=== PATIENT | male | born 1980 | race Caucasian/White ===

== ENCOUNTER 2016-11-10 14:29 | Emergency (ER) | payer MEDICAID ==
[~2016-11-10] VITALS: Ht 182.9 cm; Wt 72.5 kg
[~2016-11-10 14:29] MED LIST: AMAN100T PO; ARIC10TA PO; AZEL0.05; LISI-363 PO; MOME17I; MONT10 PO; NAME10TA PO; NORV5TAB PO; SYNT125T PO; TEST200I12 SQ; TYLE3 PO
[2016-11-10 14:30] VITALS: BP 155/90; PULSE 112; RESP 20; TEMP 98.8; O2SAT 98
[2016-11-10] MEDS ORDERED: TRAZ100T6 PO (18:38)
[2016-11-10] MEDS ORDERED: AMLO10TA2 PO (18:38)
[2016-11-10] MEDS ORDERED: LISI-519 PO (18:38)
[2016-11-10] MEDS ORDERED: LEVO.05 PO (18:38)
[2016-11-10] MEDS ORDERED: RISP1 PO (18:38)
[2016-11-10] MEDS ORDERED: PROP10TA6 PO (18:38)
[2016-11-10] MEDS ORDERED: ANDR2DIS T-DERMAL (18:38)
== END 2016-11-10 17:45 | disposition left against medical advice (07) ==
LOC: NEDAMB 14:29
DX: F19.939 Other psychoactive substance use, unspecified with withdrawal, unspecified (principal); Z53.21 Procedure and treatment not carried out due to patient leaving prior to being seen by health care provider
CPT/HCPCS: 99281

== ENCOUNTER 2016-11-10 17:08 | Inpatient (IN) | payer MEDICAID ==
[~2016-11-10] VITALS: Ht 182.9 cm; Wt 75.9 kg
[2016-11-10 17:10] VITALS: BP 161/86; PULSE 105; RESP 16; TEMP 99; O2SAT 98
[2016-11-10 18:23] LABS: BLOOD, URINE LARGE (NEG); GLUCOSE,URINE NEG (NEG); KETONE, URINE 15 mg/dL (NEG); NITRITE,URINE NEG (NEG); PH, URINE 5.5 (5.0-8.5)
[2016-11-10] MEDS ORDERED: ANDR2DIS T-DERMAL (18:38)
[2016-11-10] MEDS ORDERED: PROP10TA6 PO (18:38)
[2016-11-10] MEDS ORDERED: LEVO.05 PO (18:38)
[2016-11-10] MEDS ORDERED: RISP1 PO (18:38)
[2016-11-10] MEDS ORDERED: TRAZ100T6 PO (18:38)
[2016-11-10] MEDS ORDERED: LISI-519 PO (18:38)
[2016-11-10] MEDS ORDERED: AMLO10TA2 PO (18:38)
[2016-11-10 18:43] LABS: URINE COLOR YELLOW (YELLW/STRAW)
[2016-11-10 18:44] LABS: MUCUS URINE MANY /lpf (OCC)
[2016-11-10] MEDS ORDERED: SODIUM CHLOR 0.9% 1000 ML INJ 1,000 ML IV ONE (18:45)
[2016-11-10 18:46] LABS: WBC, URINE 0-2 /hpf (0-5); WHITE BLOOD CELL CAST, URINE 0-2 /lpf
[2016-11-10 18:47] LABS: COMMENT (UR) CULT NOT INDICATED; CULTURE IF INDICATED CULT NOT INDICATED; SQUAMOUS EPITHELIAL CELL URINE 0-5 /hpf (0-5)
[2016-11-10 19:10] LABS: AUTOMATED NEUTROPHIL # 8.2 TH/MM3 (1.8-7.7); BASOPHIL # 0.5 TH/MM3 (0-0.2); BASOPHIL % 4.3 % (0.0-2.0); EOSINOPHIL % 0.1 % (0.0-4.0); HEMATOCRIT 46.8 % (39.0-51.0); LYMPH % 15.5 % (9.0-44.0); LYMPHOCYTE # 1.8 TH/MM3 (1.0-4.8); MEAN CELL VOLUME 91.3 FL (80.0-100.0); MEAN CORPUSCULAR HEMOGLOBIN 30.5 PG (27.0-34.0); MEAN CORPUSCULAR HGB CONC 33.4 % (32.0-36.0); NEUT % 71.1 % (16.0-70.0); PLATELET COUNT 302 TH/MM3 (150-450); RED BLOOD COUNT 5.13 MIL/MM3 (4.50-5.90); RED CELL DISTRIBUTION WIDTH 12.7 % (11.6-17.2); WHITE BLOOD COUNT 11.5 TH/MM3 (4.0-11.0)
[2016-11-10 19:11] LABS: HEMO FLAGS DIFF FINAL
[2016-11-10 19:12] LABS: CHLORIDE 99 MEQ/L (98-107); POTASSIUM 3.9 MEQ/L (3.5-5.1); SODIUM (NA) 135 MEQ/L (136-145)
[2016-11-10 19:15] LABS: ANION GAP 14 MEQ/L (5-15); BICARBONATE 22.5 MEQ/L (21.0-32.0); BLOOD UREA NITROGEN 25 MG/DL (7-18)
[2016-11-10 19:18] LABS: AST (GOT) 50 U/L (15-37); GLOMERULAR FILTRATION RATE 77 ML/MIN (>89)
[2016-11-10 19:20] LABS: TOTAL BILIRUBIN ADULT 1.1 MG/DL (0.2-1.0)
[2016-11-10 19:21] LABS: ALKALINE PHOSPHATASE 78 U/L (45-117)
[2016-11-10 19:25] VITALS: BP 168/82; PULSE 88; RESP 18; TEMP 98.4; O2SAT 96
[2016-11-10 19:27] LABS: ALT (GPT) 48 U/L (12-78)
--- NOTE | 2016-11-10 19:27 | RADRPT ---
EXAM DATE/TIME: 11/10/2016 18:48 [facility] COMPARISON: CT BRAIN W/O CONTRAST, October 29, 2014, 16:52. INDICATIONS : Syncopal episode, possible fall. RADIATION DOSE: 62.64 CTDIvol (mGy) MEDICAL HISTORY : Carcinoma, brain. SURGICAL HISTORY : Craniotomy. ENCOUNTER: Initial ACUITY: 1 day PAIN SCALE: 0/10 LOCATION: cranial TECHNIQUE: Multiple contiguous axial images were obtained of the head. Using automated exposure control and adj ustment of the mA and/or kV according to patient size, radiation dose was kept as low as reasonably a chievable to obtain optimal diagnostic quality images. DICOM format image data is available electro nically for review and comparison. FINDINGS: CEREBRUM: Small area of encephalomalacia right frontal lobe again seen and unchanged. The ventricles are normal for age. No evidence of midline shift, mass lesion, hemorrhage or acute infarction. No extra-axial fluid collections are seen. Probable calcification along the dura again seen bilaterally and also wi thin the brainstem POSTERIOR FOSSA: The cerebellum and brainstem are intact. The 4th ventricle is midline. The cerebellopontine angle i s unremarkable. EXTRACRANIAL: The visualized portion of the orbits is intact. SKULL: The calvaria is intact. Occipital craniotomy. CONCLUSION: No acute intracranial abnormality. Minimal encephalomalacia right frontal lobe. Status post occipital craniotomy.. Rudi Mark MD on November 10, 2016 at 19:22 Board Certified Radiologist. This report was verified electronically.
--- NOTE | 2016-11-10 19:31 | RADRPT ---
EXAM DATE/TIME: 11/10/2016 18:48 [facility] COMPARISON: No previous studies available for comparison. INDICATIONS : Possible fall. RADIATION DOSE: 26.41 CTDIvol (mGy) MEDICAL HISTORY : Hypertension. SURGICAL HISTORY : None. ENCOUNTER: Initial ACUITY: 1 day PAIN SCALE: 1/10 LOCATION: neck TECHNIQUE: Volumetric scanning of the cervical spine was performed. Multiplanar reconstructions in the sagittal, coronal and oblique axial planes were performed. Using automated exposure control and adjustment o f the mA and/or kV according to patient size, radiation dose was kept as low as reasonably achievable to obtain optimal diagnostic quality images. DICOM format image data is available electronically f or review and comparison. FINDINGS: VERTEBRAE: Normal vertebral body height. Degenerative changes C4-5. ALIGNMENT: No evidence of subluxation. C2-C3: The bony spinal canal is normal in size. No evidence of disc bulge or herniation. The neural forami na are bilaterally patent. C3-C4: The bony spinal canal is normal in size. No evidence of disc bulge or herniation. The neural forami na are bilaterally patent. C4-C5: The bony spinal canal is normal in size. No evidence of disc bulge or herniation. The neural forami na are bilaterally patent. C5-C6: The bony spinal canal is normal in size. No evidence of disc bulge or herniation. The neural forami na are bilaterally patent. C6-C7: The bony spinal canal is normal in size. No evidence of disc bulge or herniation. The neural forami na are bilaterally patent. C7-T1: The bony spinal canal is normal in size. No evidence of disc bulge or herniation. The neural forami na are bilaterally patent. CONCLUSION: No fracture or subluxation. Rudi Mark MD on November 10, 2016 at 19:28 Board Certified Radiologist. This report was verified electronically.
--- NOTE | 2016-11-10 19:34 | RADRPT ---
EXAM DATE/TIME: 11/10/2016 18:57 [facility] COMPARISON: No previous studies available for comparison. INDICATIONS : Urinary retention. ORAL CONTRAST: No oral contrast ingested. RADIATION DOSE: 8.54 CTDIvol (mGy) MEDICAL HISTORY : Hypertension. SURGICAL HISTORY : None. ENCOUNTER: Initial ACUITY: 1 day PAIN SCALE: 0/10 LOCATION: abdomen TECHNIQUE: Volumetric scanning of the abdomen and pelvis was performed. Using automated exposure control and ad justment of the mA and/or kV according to patient size, radiation dose was kept as low as reasonably achievable to obtain optimal diagnostic quality images. DICOM format image data is available electro nically for review and comparison. FINDINGS: LOWER LUNGS: The visualized lower lungs are clear. LIVER: Decreased attenuation without lesion. There is no dilation of the biliary tree. No calcified gallst ones. SPLEEN: Normal size without lesion. PANCREAS: Within normal limits. KIDNEYS: Normal in size and shape. There is no mass, stone, or hydronephrosis. ADRENAL GLANDS: Within normal limits. VASCULAR: There is no aortic aneurysm. BOWEL/MESENTERY: Diverticulosis without diverticulitis. Normal appendix. There is no free intraperitoneal air or flui d. ABDOMINAL WALL: Within normal limits. RETROPERITONEUM: There is no lymphadenopathy. BLADDER: No wall thickening or mass. REPRODUCTIVE: Within normal limits. INGUINAL: There is no lymphadenopathy or hernia. MUSCULOSKELETAL: Within normal limits for patient age. CONCLUSION: 1. Moderate to severe hepatic steatosis. 2. No renal calculi or hydronephrosis. 3. Scattered diverticulosis without diverticulitis. 4. Urinary bladder unremarkable. Rudi Mark MD on November 10, 2016 at 19:30 Board Certified Radiologist. This report was verified electronically.
[2016-11-10] MEDS ORDERED: SODIUM CHLORID 0.9% 500 ML INJ 500 ML IV ONE (20:15)
--- NOTE | 2016-11-10 20:24 | PD ---
HPI Chief Complaint: Syncope/Near-Syncope Time Seen by Provider: 18:33 Travel History International Travel<30 days: No Contact w/Intl Traveler<30days: No Traveled to known affect area: No History of Present Illness HPI Patient is a 36-year-old male who comes in with his mom because he says he is unable to urinate. Mom says he has been binge drinking since Tuesday. She found him passed out in the house. He doesn't remember most of the past few days. He does have history of short-term memory loss due to surgery to remove a brain tumor. He says that he feels like he has to urinate, but that it will come out. He denies any other complaints. PFSH Past Medical History Cancer: Yes (BRAIN TUMOR-MALIGNANT IN 2002) Cardiovascular Problems: Yes (HTN) Chemotherapy: Yes (2003 BRAIN CA) Cerebrovascular Accident: No Diabetes: No Diminished Hearing: No Endocrine: Yes Gastrointestinal Disorders: No Genitourinary: No Headaches: No Implanted Vascular Access Dvce: Yes Musculoskeletal: No Neurologic: Yes (RT. 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 ) Psychiatric: No Reproductive: No Respiratory: No Migraines: No Radiation Therapy: Yes (IN 2003) Seizures: No Thyroid Disease: Yes (HYPOTHYROIDISM) Influenza Vaccination: No ?: Not Past Surgical History Abdominal Surgery: No Cardiac Surgery: No Ear Surgery: No Endocrine Surgery: No Eye Surgery: No Genitourinary Surgery: No Gynecologic Surgery: No Neurologic Surgery: Yes (craniotomy 2002) Oral Surgery: No Thoracic Surgery: No Other Surgery: Yes Social History Alcohol Use: Yes (PT STATES OCC BUT HAS ABUSE HX OF ETOH) Tobacco Use: Yes (OCC) Substance Use: No Allergies-Medications (Allergen,Severity, Reaction): Coded Allergies: Contrast Media (Verified Allergy, Severe, RASH, 11/10/16) Pertussis Vaccine (Verified Allergy, Severe, COMA, 11/10/16) Sulfa (Verified Allergy, Severe, Rash, 11/10/16) Reported Meds & Prescriptions Reported Meds & Active Scripts Active Reported Amlodipine (Amlodipine Besylate) 10 Mg Tab 0 PO DAILY Propranolol (Propranolol HCl) 10 Mg Tab 0 PO Q12HR Lisinopril 5 Mg Tab 0 PO DAILY Risperdal (Risperidone) 1 Mg Tab 0 PO DAILY Androderm Patch (Testosterone) 2 Mg/24 Hr Patch 1 Patch T-DERMAL HS Synthroid (Levothyroxine Sodium) 50 Mcg Tab 50 Mcg PO DAILY Trazodone (Trazodone HCl) 100 Mg Tablet 100 Mg PO HS Review of Systems Except as stated in HPI: all other systems reviewed are Neg General / Constitutional: No: Fever, Chills Eyes: Positive: Drainage, No: Blurred Vision HENT: No: Headaches, Lightheadedness Cardiovascular: No: Chest Pain or Discomfort Respiratory: No: Shortness of Breath Gastrointestinal: No: Nausea, Vomiting Genitourinary: Positive: Decreased Urinary Output Skin: No Rash, No Change in Pigmentation Neurologic: No: Weakness, Dizziness Physical Exam Narrative GENERAL: Awake and Alert, in no acute distress. SKIN: Focused skin assessment warm/dry. HEAD: Atraumatic. Normocephalic. EYES: Pupils equal and round. No scleral icterus. ENT: Mucous membranes pink and moist. NECK: Trachea midline. No JVD. No cervical spine tenderness. CARDIOVASCULAR: Regular rate and rhythm. No murmur appreciated. RESPIRATORY: No accessory muscle use. Clear to auscultation. Breath sounds equal bilaterally. GASTROINTESTINAL: Abdomen soft, non-tender, nondistended. No CVA tenderness. MUSCULOSKELETAL: No obvious deformities. No clubbing. No cyanosis. No edema. NEUROLOGICAL: Awake and alert. No obvious cranial nerve deficits. Motor grossly within normal limits. Normal speech. PSYCHIATRIC: Appropriate mood and affect; insight and judgment normal. Data Data Last Documented VS Vital Signs Date Time Temp Pulse Resp B/P Pulse Ox O2 Delivery O2 Flow Rate FiO2 11/10/16 19:25 98.4 88 18 168/82 96 Room Air Orders Urinalysis - C+S If Indicated (11/10/16 17:47) Ct Brain W/O Iv Contrast(Rout) (11/10/16 ) Ct Cerv Spine W/O Contrast (11/10/16 ) Iv Access Insert/Monitor (11/10/16 18:44) Complete Blood Count With Diff (11/10/16 18:44) Comprehensive Metabolic Panel (11/10/16 18:44) Alcohol (Ethanol) (11/10/16 18:44) Sodium Chlor 0.9% 1000 Ml Inj (Ns 1000 M (11/10/16 18:45) Ct Abd/Pel W/O Iv Contrast (11/10/16 ) Sodium Chlorid 0.9% 500 Ml Inj (Ns 500 M (11/10/16 20:15) Chlordiazepoxide (Librium) (11/10/16 20:30) Lorazepam Inj (Ativan Inj) (11/10/16 21:30) Labs Laboratory Tests Test 11/10/16 11/10/16 17:30 18:55 Urine Color YELLOW Urine Turbidity CLEAR Urine pH 5.5 Urine Specific [place] 1.025 Urine Protein 100 mg/dL Urine Glucose (UA) NEG mg/dL Urine Ketones 15 mg/dL Urine Occult Blood LARGE Urine Nitrite NEG Urine Bilirubin NEG Urine Leukocyte Esterase NEG Urine WBC 0-2 /hpf Urine Squamous Epithelial 0-5 /hpf Cells Urine Hyaline Casts 3-5 /lpf Urine Fine Granular Casts 3-5 /lpf Urine White Blood Cell Casts 0-2 /lpf Urine Mucus MANY /lpf Microscopic Urinalysis Comment CULT NOT INDICATED White Blood Count 11.5 TH/MM3 Red Blood Count 5.13 MIL/MM3 Hemoglobin 15.6 GM/DL Hematocrit 46.8 % Mean Corpuscular Volume 91.3 FL Mean Corpuscular Hemoglobin 30.5 PG Mean Corpuscular Hemoglobin 33.4 % Concent Red Cell Distribution Width 12.7 % Platelet Count 302 TH/MM3 Mean Platelet Volume 6.8 FL Neutrophils (%) (Auto) 71.1 % Lymphocytes (%) (Auto) 15.5 % Monocytes (%) (Auto) 9.0 % Eosinophils (%) (Auto) 0.1 % Basophils (%) (Auto) 4.3 % Neutrophils # (Auto) 8.2 TH/MM3 Lymphocytes # (Auto) 1.8 TH/MM3 Monocytes # (Auto) 1.0 TH/MM3 Eosinophils # (Auto) 0.0 TH/MM3 Basophils # (Auto) 0.5 TH/MM3 CBC Comment DIFF FINAL Differential Comment Sodium Level 135 MEQ/L Potassium Level 3.9 MEQ/L Chloride Level 99 MEQ/L Carbon Dioxide Level 22.5 MEQ/L Anion Gap 14 MEQ/L Blood Urea Nitrogen 25 MG/DL Creatinine 1.10 MG/DL Estimat Glomerular Filtration 77 ML/MIN Rate Random Glucose 103 MG/DL Calcium Level 8.9 MG/DL Total Bilirubin 1.1 MG/DL Aspartate Amino Transf 50 U/L (AST/SGOT) Alanine Aminotransferase 48 U/L (ALT/SGPT) Alkaline Phosphatase 78 U/L Total Protein 7.9 GM/DL Albumin 4.4 GM/DL Ethyl Alcohol Level 162 MG/DL [facility] Medical Decision Making Medical Screen Exam Complete: Yes Emergency Medical Condition: Yes Medical Record Reviewed: Yes Differential Diagnosis Intoxication versus dehydration versus electrolyte abnormality Narrative Course Patient is a 36-year-old male who comes in with his mom because he feels like he is having difficulty urinating. IV established, labs sent. Labs show evidence of dehydration. Patient given a liter of fluids. Urine is positive for blood. Patient did complain of some back pain earlier in the day, CT abdomen and pelvis performed to rule out renal stone. CT shows no acute abnormalities. There is no distention of the urinary bladder. Patient started to hallucinate while in the ED, raising concern for withdrawal. He is seeing things that do not exist on the almonte. Mom reports he had a withdrawal seizure in the past. Patient given Librium followed by Sayda. He will be admitted for alcohol withdrawal. Diagnosis Primary Impression: Dehydration Additional Impression: Alcohol withdrawal Qualified Code: F10.231 - Alcohol withdrawal, with delirium Admitting Information Admitting Physician Requests: Admit Patient Instructions: General Instructions Jessa Howell MD Nov 10, 2016 20:24 necessary for any worsening symptoms. Follow-up with your doctors. Disposition: 01 DISCHARGE HOME Condition: Stable Jessa Howell MD Nov 10, 2016 20:24
[2016-11-10 20:25] VITALS: BP 136/76; PULSE 98; RESP 20; O2SAT 96
[2016-11-10 21:25] VITALS: BP_SYST 132; BP_SYST 136; BP_DIAS 66; BP_DIAS 76; PULSE 86; PULSE 96; RESP 20; TEMP 99.2; O2SAT 97
[2016-11-10] MEDS ORDERED: LORazepam 2 MG/ML VIAL IV PUSH ONE (21:30)
[2016-11-10 22:25] VITALS: BP 129/68; PULSE 78; RESP 16; O2SAT 96
[2016-11-10] MEDS ORDERED: THIAMINE HCL 100 MG TAB PO ONE (22:30)
[2016-11-10] MEDS ORDERED: NALOXONE HCL 0.4 MG/ML AMP IV PRN (22:30)
[2016-11-10] MEDS ORDERED: LORazepam 2 MG/ML VIAL IV PUSH PRN (22:30)
[2016-11-10] MEDS ORDERED: SODIUM CHLORIDE 0.9% FLUSH 10 ML FLUSH IV FLUSH PRN (22:30)
[2016-11-10 23:25] VITALS: BP 124/72; PULSE 70; RESP 16; O2SAT 96
[2016-11-11] VITALS (12 sets, daily range): BP systolic 117–138; BP diastolic 65–76; PULSE 58–85; RESP 18–27; TEMP 98–99.8; O2SAT 92–98
[2016-11-11 05:14] LABS: AUTOMATED NEUTROPHIL # 5.6 TH/MM3 (1.8-7.7); BASOPHIL % 0.3 % (0.0-2.0); EOSINOPHIL # 0.1 TH/MM3 (0-0.4); EOSINOPHIL % 0.7 % (0.0-4.0); HEMATOCRIT 38.4 % (39.0-51.0); LYMPH % 17.8 % (9.0-44.0); LYMPHOCYTE # 1.4 TH/MM3 (1.0-4.8); MEAN CELL VOLUME 89.8 FL (80.0-100.0); MEAN CORPUSCULAR HEMOGLOBIN 31.6 PG (27.0-34.0); MEAN CORPUSCULAR HGB CONC 35.1 % (32.0-36.0); MONO % 10.8 % (0.0-8.0); NEUT % 70.4 % (16.0-70.0); PLATELET COUNT 214 TH/MM3 (150-450); RED BLOOD COUNT 4.27 MIL/MM3 (4.50-5.90); RED CELL DISTRIBUTION WIDTH 12.4 % (11.6-17.2)
[2016-11-11 05:21] LABS: HEMO FLAGS DIFF FINAL
[2016-11-11 05:23] LABS: POTASSIUM 3.5 MEQ/L (3.5-5.1)
[2016-11-11 05:27] LABS: BICARBONATE 26.7 MEQ/L (21.0-32.0)
[2016-11-11] MEDS: chlordiazePOXIDE 25 MG CAP PO SCH ×3 (08:46→17:38)
[2016-11-11] MEDS: THIAMINE HCL 100 MG TAB PO SCH (08:46)
[2016-11-11] MEDS: SODIUM CHLORIDE 0.9% FLUSH 10 ML FLUSH IV FLUSH SCH ×2 (08:46→19:42)
[2016-11-11] MEDS: LEVOTHYROXINE SODIUM 50 MCG TAB PO SCH (12:38)
[2016-11-11] MEDS ORDERED: LORazepam 2 MG TAB PO PRN (12:45)
[2016-11-11] MEDS ORDERED: FLUMAZENIL 0.5 MG/5 ML VIAL IV PUSH PRN (12:45)
[2016-11-11] MEDS ORDERED: LORazepam 2 MG/ML VIAL IV PUSH PRN ×2 (12:45)
[2016-11-11] MEDS ORDERED: LORazepam 1 MG TAB PO PRN (12:45)
[2016-11-11] MEDS: SODIUM CHLOR 0.9% 1000 ML INJ 1,000 ML IV SCH ×2 (12:49→19:42)
[2016-11-11] MEDS: ACETAMINOPHEN/CODEINE 300 MG/30 MG TAB PO PRN (12:51)
--- NOTE | 2016-11-11 12:56 | HHI.HP ---
[facility] No Primary Care Physician Admission Diagnosis alcohol withdrawal Diagnoses: Chief Complaint: Inability to urinate Travel History International Travel<30 Days: No Contact w/Intl Traveler <30 Da: No Traveled to Known Affected Are: No History of Present Illness The patient is a 36-year-old male with a past medical history of medulloblastoma status post surgery, chemotherapy and radiation who is presenting to the hospital with urinary retention. The patient states that he has been binge drinking for the past 4-5 days. He says his mother usually manages his finances but he was able to get $140 so he went to [employer] and got 20 small bottles of vodka and drank at all. He says he became quite drunk and developed the inability to urinate. He says this has happened to him on 2 or 3 prior occasions. He says the other times he was unable to urinate it got better on its own. He says he has had seizures related to alcohol withdrawal in the past. The patient says that his withdrawal is currently improved compared to yesterday. He says that he does not drink every day because his body can't handle that much alcohol on a regular basis. When he does get money he does go on binges. He says he has tried going to AA in the past. The patient states that he is still unable to urinate. He provided a small sample yesterday but since then his urine output has been negligible. He complains of chronic pain because he says when he drinks this heavily he tends to fall down. He complains of pain along his right thigh. He wanted to make sure he would be on his home medications because he says he does not do well without them. 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, chemotherapy and radiation therapy Hypothyroidism Hypogonadism TBI Hypertension Vertigo Hearing-impaired Allergies: Coded Allergies: Contrast Media (Verified Allergy, Severe, RASH, 11/10/16) Pertussis Vaccine (Verified Allergy, Severe, COMA, 11/10/16) Sulfa (Verified Allergy, Severe, Rash, 11/10/16) Active Ordered Medications Current Medications Medications (Trade) Dose Ordered Sig/Ovidio Route Start Time Stop Time Status Last Admin (NS Flush) 2 ml UNSCH PRN IV FLUSH 11/10/16 22:30 (NS Flush) 2 ml BID IV FLUSH 11/11/16 09:00 11/11/16 08:46 (Narcan Inj) 0.4 mg UNSCH PRN IV 11/10/16 22:30 (Ativan Inj) 1 mg Q2H PRN IV PUSH 11/10/16 22:30 (Vitamin B1) 100 mg DAILY PO 11/11/16 09:00 11/11/16 08:46 (Librium) 25 mg TID PO 11/11/16 09:00 11/11/16 12:38 (Synthroid) 50 mcg DAILY@06 PO 11/11/16 12:00 11/11/16 12:38 (Desyrel) 100 mg HS PO 11/11/16 21:00 (Tylenol-Codeine #3) 1 tab Q6H PRN PO 11/11/16 12:45 Mirtazapine 7.5 mg 7.5 mg HS PO 11/11/16 21:00 UNV (NS 1000 ml Inj) 1,000 ml @ 100 mls/hr Q10H IV 11/11/16 12:45 11/12/16 18:44 UNV Family History Brain tumor Social History The patient smokes 1 cigar daily. He binges on alcohol when he gets the money. He denies illicit drug use. Physical Exam Vital Signs Vital Signs Date Time Temp Pulse Resp B/P Pulse Ox O2 Delivery O2 Flow Rate FiO2 11/11/16 12:00 84 11/11/16 12:00 98.8 84 19 135/76 97 11/11/16 08:00 98.0 72 18 127/75 97 11/11/16 08:00 58 11/11/16 04:03 99.6 60 23 125/65 96 11/11/16 02:00 82 27 11/11/16 01:38 99.8 85 26 118/66 92 11/11/16 00:25 98.2 70 18 117/70 95 Room Air 11/10/16 23:25 97 Room Air 11/10/16 23:25 70 16 124/72 96 Room Air 11/10/16 22:25 78 16 129/68 96 Room Air 11/10/16 21:25 99.2 86 20 132/66 97 Room Air 11/10/16 20:25 98 20 136/76 96 Room Air 11/10/16 19:25 98.4 88 18 168/82 96 Room Air 11/10/16 19:25 88 96 Room Air 11/10/16 18:32 97 11/10/16 17:10 99.0 105 16 161/86 98 Physical Exam GENERAL: Awake and Alert, in no acute distress. Mildly tremulous. SKIN: Focused skin assessment warm/dry. Surgical scars noted on head. HEAD: Atraumatic. Normocephalic. EYES: Pupils equal and round. No scleral icterus. ENT: Mucous membranes pink and moist. NECK: Trachea midline. No JVD. No cervical spine tenderness. CARDIOVASCULAR: Regular rate and rhythm. No murmur appreciated. RESPIRATORY: No accessory muscle use. Clear to auscultation. Breath sounds equal bilaterally. GASTROINTESTINAL: Abdomen soft, non-tender, nondistended. No CVA tenderness. MUSCULOSKELETAL: No obvious deformities. No clubbing. No cyanosis. No edema. NEUROLOGICAL: Awake and alert. Motor grossly within normal limits. Normal speech. PSYCHIATRIC: Slightly flattened affect. Laboratory Laboratory Tests Test 11/10/16 11/10/16 11/11/16 17:30 18:55 04:50 Urine Color YELLOW Urine Turbidity CLEAR Urine pH 5.5 Urine Specific [place] 1.025 Urine Protein 100 Urine Glucose (UA) NEG Urine Ketones 15 Urine Occult Blood LARGE Urine Nitrite NEG Urine Bilirubin NEG Urine Leukocyte Esterase NEG Urine WBC 0-2 Urine Squamous Epithelial 0-5 Cells Urine Hyaline Casts 3-5 Urine Fine Granular Casts 3-5 Urine White Blood Cell Casts 0-2 Urine Mucus MANY Microscopic Urinalysis Comment CULT NOT INDICATED White Blood Count 11.5 8.0 Red Blood Count 5.13 4.27 Hemoglobin 15.6 13.5 Hematocrit 46.8 38.4 Mean Corpuscular Volume 91.3 89.8 Mean Corpuscular Hemoglobin 30.5 31.6 Mean Corpuscular Hemoglobin 33.4 35.1 Concent Red Cell Distribution Width 12.7 12.4 Platelet Count 302 214 Mean Platelet Volume 6.8 6.8 Neutrophils (%) (Auto) 71.1 70.4 Lymphocytes (%) (Auto) 15.5 17.8 Monocytes (%) (Auto) 9.0 10.8 Eosinophils (%) (Auto) 0.1 0.7 Basophils (%) (Auto) 4.3 0.3 Neutrophils # (Auto) 8.2 5.6 Lymphocytes # (Auto) 1.8 1.4 Monocytes # (Auto) 1.0 0.9 Eosinophils # (Auto) 0.0 0.1 Basophils # (Auto) 0.5 0.0 CBC Comment DIFF FINAL DIFF FINAL Differential Comment Sodium Level 135 136 Potassium Level 3.9 3.5 Chloride Level 99 100 Carbon Dioxide Level 22.5 26.7 Anion Gap 14 9 Blood Urea Nitrogen 25 24 Creatinine 1.10 1.00 Estimat Glomerular Filtration 77 86 Rate Random Glucose 103 102 Calcium Level 8.9 8.4 Total Bilirubin 1.1 Aspartate Amino Transf 50 (AST/SGOT) Alanine Aminotransferase 48 (ALT/SGPT) Alkaline Phosphatase 78 Total Protein 7.9 Albumin 4.4 Ethyl Alcohol Level 162 Result Diagram: 11/11/16 0450 11/11/160 Imaging Last Impressions Head CT 11/10/16 0000 Signed Impressions: Service Date/Time: Thursday, November 10, 2016 18:48 - CONCLUSION: No acute intracranial abnormality. Minimal encephalomalacia right frontal lobe. Status post occipital craniotomy.. Rudi Mark MD Cervical Spine CT 11/10/16 0000 Signed Impressions: Service Date/Time: Thursday, November 10, 2016 18:48 - CONCLUSION: No fracture or subluxation. Rudi Mark MD Abdomen/Pelvis CT 11/10/16 0000 Signed Impressions: Service Date/Time: Thursday, November 10, 2016 18:57 - CONCLUSION: 1. Moderate to severe hepatic steatosis. 2. No renal calculi or hydronephrosis. 3. Scattered diverticulosis without diverticulitis. 4. Urinary bladder unremarkable. Rudi Mark MD Assessment and Plan Assessment and Plan Acute alcohol withdrawal Secondary to binging on vodka. - Alcohol cessation instruction. - CIWA protocol. - Continue standing Librium for now. - Seizure precautions. - consider physical therapy. Acute urinary retention Since that happen and the patient is intoxicated. UA with evidence of hematuria. No evidence of infection. - Place Tyler catheter and start IV fluids. - urology consultation if needed. 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 - Continue home medication regimen. HTN Blood pressure has been well-controlled. - Hold home medications at this time and monitor. PPx: SCDs Code Status Full Discussed Condition With Pt, nurse Physician Certification 2 Midnight Certification Type: Admission for Inpatient Services Order for Inpatient Services The services are ordered in accordance with Medicare regulations or non- Medicare payer requirements, as applicable. In the case of services not specified as inpatient-only, they are appropriately provided as inpatient services in accordance with the 2-midnight benchmark. Estimated LOS (days): 2 days is the estimated time the patient will need to remain in the hospital, assuming treatment plan goals are met and no additional complications. Post-Hospital Plan: Home Fabio Rolle DO Nov 11, 2016 12:56
[2016-11-11] MEDS ORDERED: PILL SPLITTER OTHER PRN (13:00)
[2016-11-11] MEDS: MIRTAZAPINE 15 MG TAB PO SCH (19:42)
[2016-11-11] MEDS: traZODone HCL 100 MG TAB PO SCH (19:42)
[2016-11-12] VITALS (12 sets, daily range): BP systolic 126–154; BP diastolic 74–92; PULSE 50–82; RESP 10–22; TEMP 96.4–98.9; O2SAT 95–99
[2016-11-12 04:48] LABS: CHLORIDE 107 MEQ/L (98-107); POTASSIUM 3.6 MEQ/L (3.5-5.1); SODIUM (NA) 140 MEQ/L (136-145)
[2016-11-12 05:00] LABS: ALKALINE PHOSPHATASE 61 U/L (45-117); ALT (GPT) 35 U/L (12-78); ANION GAP 6 MEQ/L (5-15); AST (GOT) 38 U/L (15-37); BICARBONATE 27.1 MEQ/L (21.0-32.0); BLOOD UREA NITROGEN 22 MG/DL (7-18); GLOMERULAR FILTRATION RATE 77 ML/MIN (>89); TOTAL BILIRUBIN ADULT 1.3 MG/DL (0.2-1.0)
[2016-11-12] MEDS: LEVOTHYROXINE SODIUM 50 MCG TAB PO SCH (06:01)
[2016-11-12] MEDS: chlordiazePOXIDE 25 MG CAP PO SCH (08:32)
[2016-11-12] MEDS: SODIUM CHLORIDE 0.9% FLUSH 10 ML FLUSH IV FLUSH SCH ×2 (08:33→20:41)
[2016-11-12] MEDS: THIAMINE HCL 100 MG TAB PO SCH (08:33)
[2016-11-12] MEDS: ACETAMINOPHEN/CODEINE 300 MG/30 MG TAB PO PRN ×2 (08:33→16:28)
[2016-11-12] MEDS: SODIUM CHLOR 0.9% 1000 ML INJ 1,000 ML IV SCH (08:34)
--- NOTE | 2016-11-12 11:13 | HHI.PR ---
Subjective Remarks The patient was resting in bed comfortably. He believes the Librium was making him too sleepy. He was interested in having the Tyler catheter removed. He said he would be willing to walk around but thinks he might need a walker. He says sometimes when he sleeps he'll feel a sensation of his arms feeling numb but he has not been experiencing lately. Discussed with nursing. Objective Vitals Vital Signs Date Time Temp Pulse Resp B/P Pulse Ox O2 Delivery O2 Flow Rate FiO2 11/12/16 10:00 56 11/12/16 08:00 98.7 82 22 144/82 95 11/12/16 08:00 82 11/12/16 06:00 62 11/12/16 04:12 98.8 58 10 126/74 11/12/16 04:12 58 11/12/16 00:00 98.9 58 17 126/76 11/12/16 00:00 58 11/11/16 22:00 58 11/11/16 20:00 66 11/11/16 20:00 98.8 66 22 128/72 95 11/11/16 18:00 80 11/11/16 16:00 70 11/11/16 16:00 98.6 62 20 138/76 98 11/11/16 14:00 78 11/11/16 12:00 84 11/11/16 12:00 98.8 84 19 135/76 97 I/O 11/11/16 11/11/16 11/11/16 11/12/16 11/12/16 11/12/16 07:00 15:00 23:00 07:00 15:00 23:00 Intake Total 100 ml 2193 ml 987 ml Output Total 1400 ml 600 ml Balance 100 ml 793 ml 387 ml Intake Oral 100 ml 1440 ml 120 ml IV Total 753 ml 867 ml Output Urine Total 1400 ml 600 ml # Voids 2 # Bowel Movements 2 1 0 Result Diagram: 11/11/16 0450 11/12/16 0432 Imaging Last Impressions Head CT 11/10/16 0000 Signed Impressions: Service Date/Time: Thursday, November 10, 2016 18:48 - CONCLUSION: No acute intracranial abnormality. Minimal encephalomalacia right frontal lobe. Status post occipital craniotomy.. Rudi Mark MD Cervical Spine CT 11/10/16 0000 Signed Impressions: Service Date/Time: Thursday, November 10, 2016 18:48 - CONCLUSION: No fracture or subluxation. Rudi Mark MD Abdomen/Pelvis CT 11/10/16 0000 Signed Impressions: Service Date/Time: Thursday, November 10, 2016 18:57 - CONCLUSION: 1. Moderate to severe hepatic steatosis. 2. No renal calculi or hydronephrosis. 3. Scattered diverticulosis without diverticulitis. 4. Urinary bladder unremarkable. Rudi Mark MD Objective Remarks GENERAL: Awake and Alert, in no acute distress. SKIN: Focused skin assessment warm/dry. Surgical scars noted on head. HEAD: Atraumatic. Normocephalic. EYES: Pupils equal and round. No scleral icterus. ENT: Mucous membranes pink and moist. NECK: Trachea midline. No JVD. No cervical spine tenderness. CARDIOVASCULAR: Regular rate and rhythm. No murmur appreciated. RESPIRATORY: No accessory muscle use. Clear to auscultation. Breath sounds equal bilaterally. GASTROINTESTINAL: Abdomen soft, non-tender, nondistended. No CVA tenderness. MUSCULOSKELETAL: No obvious deformities. No clubbing. No cyanosis. No edema. NEUROLOGICAL: Awake and alert. Motor grossly within normal limits. Normal speech. PSYCHIATRIC: Slightly flattened affect. Medications and IVs Current Medications Medications (Trade) Dose Ordered Sig/Ovidio Route Start Time Stop Time Status Last Admin (NS Flush) 2 ml UNSCH PRN IV FLUSH 11/10/16 22:30 (NS Flush) 2 ml BID IV FLUSH 11/11/16 09:00 11/12/16 08:33 (Narcan Inj) 0.4 mg UNSCH PRN IV 11/10/16 22:30 (Ativan Inj) 1 mg Q2H PRN IV PUSH 11/10/16 22:30 (Vitamin B1) 100 mg DAILY PO 11/11/16 09:00 11/12/16 08:33 (Synthroid) 50 mcg DAILY@06 PO 11/11/16 12:00 11/12/16 06:01 (Desyrel) 100 mg HS PO 11/11/16 21:00 11/11/16 19:42 (Tylenol-Codeine #3) 1 tab Q6H PRN PO 11/11/16 12:45 11/12/16 08:33 Mirtazapine 7.5 mg 7.5 mg HS PO 11/11/16 21:00 11/11/16 19:42 (NS 1000 ml Inj) 1,000 ml @ 100 mls/hr Q10H IV 11/11/16 12:45 11/12/16 18:44 11/12/16 08:34 (Romazicon Inj) 0.2 mg Q1M PRN IV PUSH 11/11/16 12:45 (Ativan) 1 mg Q4H PRN PO 11/11/16 12:45 (Ativan) 2 mg Q2H PRN PO 11/11/16 12:45 (Ativan Inj) 2 mg Q1H PRN IV PUSH 11/11/16 12:45 (Ativan Inj) 2 mg Q15M PRN IV PUSH 11/11/16 12:45 (Pill Splitter) 1 ea UNSCH PRN OTHER 11/11/16 13:00 A/P Assessment and Plan Acute alcohol withdrawal Secondary to binging on vodka. Seems stable at this time. - Alcohol cessation instruction. - CIWA protocol. - d/c standing Librium. - Seizure precautions. - physical therapy. - case management consult. Acute urinary retention The pt has had this happen before while intoxicated. UA with evidence of hematuria. No evidence of infection. Tyler has been placed. - voiding trial. - IVFs. - urology consultation if needed, otherwise will have pt see as an outpt. 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 - Continue home medication regimen. HTN Blood pressure has been well-controlled. - Hold home medications at this time and monitor. PPx: SCDs Discharge Planning Transfer to regular floor. Anticipate d/c in Fabio Aceves DO Nov 12, 2016 11:13
[2016-11-12] MEDS: MIRTAZAPINE 15 MG TAB PO SCH (20:39)
[2016-11-12] MEDS: traZODone HCL 100 MG TAB PO SCH (20:41)
[2016-11-13] VITALS: BP 142/92; PULSE 50; RESP 20; TEMP 96.8; O2SAT 98
[2016-11-13] MEDS: LEVOTHYROXINE SODIUM 50 MCG TAB PO SCH (05:25)
[2016-11-13 08:00] VITALS: BP 139/86; PULSE 65; RESP 20; TEMP 98.3; O2SAT 100
[2016-11-13 08:11] LABS: ALKALINE PHOSPHATASE 60 U/L (45-117); ALT (GPT) 58 U/L (12-78); ANION GAP 7 MEQ/L (5-15); AST (GOT) 61 U/L (15-37); BLOOD UREA NITROGEN 17 MG/DL (7-18); CHLORIDE 107 MEQ/L (98-107); GLOMERULAR FILTRATION RATE 77 ML/MIN (>89); POTASSIUM 4.4 MEQ/L (3.5-5.1); SODIUM (NA) 143 MEQ/L (136-145); TOTAL BILIRUBIN ADULT 0.8 MG/DL (0.2-1.0)
--- NOTE | 2016-11-13 08:52 | HHI.DCPOC ---
Discharge Care Plan Diagnosis: (1) Alcohol abuse (2) Alcohol withdrawal (3) Dehydration (4) Acute urinary retention (5) Hematuria Goals to Promote Your Health * To prevent worsening of your condition and complications * To maintain your health at the optimal level Directions to Meet Your Goals Take your medications as prescribed Follow your dietary instruction Follow activity as directed Keep your appointments as scheduled Take your immunizations and boosters as scheduled If your symptoms worsen call your PCP, if no PCP go to Urgent Care Center or Emergency Room Smoking is Dangerous to Your Health. Avoid second hand smoke Call the 24-hour hour crisis hotline for domestic abuse at Fabio Rolle DO Nov 13, 2016 08:52
--- NOTE | 2016-11-13 09:00 | HHI.DS ---
Discharge Summary Admission Date Nov 10, 2016 at 22:21 Discharge Date: Nov 13, 2016 Admitting Diagnosis alcohol withdrawal (1) Alcohol abuse ICD Code: F10.10 (2) Acute urinary retention ICD Code: R33.8 Diagnosis: Principal (3) Alcohol withdrawal ICD Code: F10.239 Diagnosis: Principal (4) Hematuria ICD Code: R31.9 (5) Dehydration ICD Code: E86.0 Procedures None Brief History - From Admission The patient is a 36-year-old male with a past medical history of medulloblastoma status post surgery, chemotherapy and radiation who is presenting to the hospital with urinary retention. The patient states that he has been binge drinking for the past 4-5 days. He says his mother usually manages his finances but he was able to get $140 so he went to [employer] and got 20 small bottles of vodka and drank at all. He says he became quite drunk and developed the inability to urinate. He says this has happened to him on 2 or 3 prior occasions. He says the other times he was unable to urinate it got better on its own. He says he has had seizures related to alcohol withdrawal in the past. The patient says that his withdrawal is currently improved compared to yesterday. He says that he does not drink every day because his body can't handle that much alcohol on a regular basis. When he does get money he does go on binges. He says he has tried going to AA in the past. The patient states that he is still unable to urinate. He provided a small sample yesterday but since then his urine output has been negligible. He complains of chronic pain because he says when he drinks this heavily he tends to fall down. He complains of pain along his right thigh. He wanted to make sure he would be on his home medications because he says he does not do well without them. CBC/BMP: 11/11/16 0450 11/13/16 0640 Significant Findings Laboratory Tests Test 11/10/16 11/10/16 11/11/16 11/12/16 17:30 18:55 04:50 04:32 Urine Protein 100 mg/dL (NEG-TRACE) Urine Ketones 15 mg/dL (NEG) Urine Occult Blood LARGE (NEG) Urine Hyaline Casts 3-5 /lpf (RARE) Urine Mucus MANY /lpf (OCC) White Blood Count 11.5 TH/MM3 (4.0-11.0) Mean Platelet Volume 6.8 FL 6.8 FL (7.0-11.0) (7.0-11.0) Neutrophils (%) (Auto) 71.1 % 70.4 % (16.0-70.0) (16.0-70.0) Monocytes (%) (Auto) 9.0 % (0.0-8.0) 10.8 % (0.0-8.0) Basophils (%) (Auto) 4.3 % (0.0-2.0) Neutrophils # (Auto) 8.2 TH/MM3 (1.8-7.7) Monocytes # (Auto) 1.0 TH/MM3 (0-0.9) Basophils # (Auto) 0.5 TH/MM3 (0-0.2) Sodium Level 135 MEQ/L (136-145) Blood Urea Nitrogen 25 MG/DL (7-18) 24 MG/DL (7-18) 22 MG/DL (7-18) Estimat Glomerular Filtration 77 ML/MIN (>89) 86 ML/MIN (>89) 77 ML/MIN (>89) Rate Total Bilirubin 1.1 MG/DL 1.3 MG/DL (0.2-1.0) (0.2-1.0) Aspartate Amino Transf 50 U/L (15-37) 38 U/L (15-37) (AST/SGOT) Ethyl Alcohol Level 162 MG/DL (0-5) Red Blood Count 4.27 MIL/MM3 (4.50-5.90) Hematocrit 38.4 % (39.0-51.0) Calcium Level 8.4 MG/DL 7.9 MG/DL (8.5-10.1) (8.5-10.1) Total Protein 5.9 GM/DL (6.4-8.2) Albumin 3.1 GM/DL (3.4-5.0) Test 11/13/16 06:40 Estimat Glomerular Filtration 77 ML/MIN (>89) Rate Calcium Level 8.3 MG/DL (8.5-10.1) Aspartate Amino Transf 61 U/L (15-37) (AST/SGOT) Total Protein 6.1 GM/DL (6.4-8.2) Albumin 3.1 GM/DL (3.4-5.0) Imaging Last Impressions Head CT 11/10/16 0000 Signed Impressions: Service Date/Time: Thursday, November 10, 2016 18:48 - CONCLUSION: No acute intracranial abnormality. Minimal encephalomalacia right frontal lobe. Status post occipital craniotomy.. Rudi Mark MD Cervical Spine CT 11/10/16 0000 Signed Impressions: Service Date/Time: Tuesday, November 10, 2016 18:48 - CONCLUSION: No fracture or subluxation. Rudi Mark MD Abdomen/Pelvis CT 11/10/16 0000 Signed Impressions: Service Date/Time: Tuesday, November 10, 2016 18:57 - CONCLUSION: 1. Moderate to severe hepatic steatosis. 2. No renal calculi or hydronephrosis. 3. Scattered diverticulosis without diverticulitis. 4. Urinary bladder unremarkable. Rudi Mark MD PE at Discharge GENERAL: Awake and Alert, in no acute distress. SKIN: Focused skin assessment warm/dry. Surgical scars noted on head. HEAD: Atraumatic. Normocephalic. EYES: Pupils equal and round. No scleral icterus. ENT: Mucous membranes pink and moist. NECK: Trachea midline. No JVD. No cervical spine tenderness. CARDIOVASCULAR: Regular rate and rhythm. No murmur appreciated. RESPIRATORY: No accessory muscle use. Clear to auscultation. Breath sounds equal bilaterally. GASTROINTESTINAL: Abdomen soft, non-tender, nondistended. No CVA tenderness. MUSCULOSKELETAL: No obvious deformities. No clubbing. No cyanosis. No edema. NEUROLOGICAL: Awake and alert. Motor grossly within normal limits. Normal speech. PSYCHIATRIC: Slightly flattened affect. Pt update on day of discharge The patient said he continued to feel better. He has been ambulating. He has been urinating well without the Tyler catheter. He requests assistance with finding a primary care doctor. He wanted to make sure the CAT scan of his brain was normal. Discussed with case management. Hospital Course Acute alcohol withdrawal Secondary to binging on vodka. LFTs were elevated. He received alcohol cessation instruction. He was placed on CIWA protocol along with standing Librium. He was placed on seizure precautions. His withdrawal continued to improve. Librium was discontinued. He worked with physical therapy. Acute urinary retention The pt has had this happen to him before while intoxicated. UA with evidence of hematuria. No evidence of infection. CT of the abdomen was unremarkable for pathology. Tyler catheter was placed. He was started on IVFs. He had a successful voiding trial. He will be referred to urology for further evaluation. 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 CT of the brain was unremarkable. He will continue his home medication regimen. He will need to follow up with oncology. HTN Blood pressure has been well-controlled. Will d/c propranolol in the setting of bradycardia. The pt may resume his home amlodipine and lisinopril. He will need to follow up with a primary care doctor. Hepatic steatosis Noted on CT of the abdomen. The pt received alcohol cessation instruction. Insurance difficulties The pt says he has had a hard time with follow-up s/t nobody taking his insurance. Case management assisted with helping the pt locate providers who would take his insurance. Pt Condition on Discharge: Stable Discharge Disposition: Discharge Home Discharge Time: > 30 minutes Discharge Instructions DIET: Follow Instructions for: Heart Healthy Diet Activities you can perform: Weight Bearing as Jacqueline Follow up Referrals: Oncology - 1 Week Urology - 2 Weeks Continued Medications: Amlodipine (Amlodipine) 10 Mg Tab 0 PO DAILY Blood Pressure Management #30 Ref 0 TAB Levothyroxine (Synthroid) 50 Mcg Tab 50 MCG PO DAILY Thyroid #30 Ref 0 TAB Lisinopril (Lisinopril) 5 Mg Tab 0 PO DAILY Blood Pressure Management #30 Ref 0 TAB Testosterone Patch (Androderm Patch) 2 Mg/24 Hr Patch 1 PATCH T-DERMAL HS Hormone Replacement #30 Ref 0 PATCH Trazodone (Trazodone) 100 Mg Tablet 100 MG PO HS Control Depression #30 Ref 0 TAB Discontinued Medications: Propranolol (Propranolol) 10 Mg Tab 0 PO Q12HR #60 Ref 0 TAB Risperidone (Risperdal) 1 Mg Tab 0 PO DAILY #30 Ref 0 TAB Fabio Rolle DO Nov 13, 2016 08:59
[2016-11-13] MEDS: THIAMINE HCL 100 MG TAB PO SCH (09:21)
[2016-11-13] MEDS: SODIUM CHLORIDE 0.9% FLUSH 10 ML FLUSH IV FLUSH SCH (09:23)
== END 2016-11-13 11:39 | disposition home or self-care (01) | DRG 897 ==
LOC: PHED 17:08 → PHEDA 22:21 → PHICU 11-11 01:35 → PH3A 11-12 17:21
PROVIDERS: ADMIT Hospitalist; ATTEND Hospitalist
DX: F10.239 Alcohol dependence with withdrawal, unspecified (principal); K76.0 Fatty (change of) liver, not elsewhere classified; I10 Essential (primary) hypertension; R33.9 Retention of urine, unspecified; Y90.6 Blood alcohol level of 120-199 mg/100 ml; Z85.841 Personal history of malignant neoplasm of brain; Z92.21 Personal history of antineoplastic chemotherapy; Z92.3 Personal history of irradiation; R29.6 Repeated falls; G89.29 Other chronic pain; F17.290 Nicotine dependence, other tobacco product, uncomplicated; H91.90 Unspecified hearing loss, unspecified ear; E03.9 Hypothyroidism, unspecified; E29.1 Testicular hypofunction; E86.0 Dehydration; R31.9 Hematuria, unspecified
CPT/HCPCS: 70450; 72125; 74176; 80048; 80053; 80307; 81001; 85025; 96360; 96361; J2060; J7030; J7040

== ENCOUNTER 2018-03-26 19:45 | Observation (INO) ==
[2018-03-26] MEDS ORDERED: Sod Chloride 0.9% Inj 1,000 ML IV.SIG ONE (20:10)
[2018-03-26] MEDS ORDERED: Sodium Chlor 0.9% Inj 500 ML IV.SIG SCH (21:00)
[2018-03-26 21:03] LABS: Baso # (Auto) 0.1 th/mm3 (0.0-0.2); Baso % (Auto) 1.2 % (0.0-2.0); Eos # (Auto) 0.2 th/mm3 (0.0-0.4); Eos % (Auto) 2.2 % (0.0-4.0); Hematocrit 47.5 % (39.0-51.0); Hemoglobin 16.1 gm/dL (13.0-17.0); Lymph # (Auto) 2.7 th/mm3 (1.0-4.8); Lymph % (Auto) 33.2 % (9.0-44.0); Mean Corpuscular HGB Conc 33.9 % (32.0-36.0); Mean Corpuscular Hemoglobin 30.4 pg (27.0-34.0); Mean Corpuscular Volume 89.7 fL (80.0-100.0); Mono # (Auto) 0.6 th/mm3 (0.0-0.9); Mono % (Auto) 7.6 % (0.0-8.0); Neut # (Auto) 4.4 th/mm3 (1.8-7.7); Neut % (Auto) 55.8 % (16.0-70.0); Platelet Count 331 th/mm3 (150-450); Red Cell Distribution Width 12.8 % (11.6-17.2)
[2018-03-26 21:10] LABS: Chloride 104 meq/L (98-107); Potassium 4.4 meq/L (3.5-5.1); Sodium 138 meq/L (136-145)
[2018-03-26 21:13] LABS: Anion Gap 6 meq/L (5-15); Blood Urea Nitrogen 19 mg/dL (7-18); Calcium 9.2 mg/dL (8.5-10.1); Carbon Dioxide 28.2 meq/L (21.0-32.0); Glucose,Random 99 mg/dL (74-106)
[2018-03-26 21:17] LABS: Glomerular Filtration Rate 53 mL/min (>89)
--- NOTE | 2018-03-26 21:22 | XR ---
EXAM DATE: 03/26/2018 9:01 PM EST AGE/SEX: 38 years / Male INDICATIONS: . Weakness. Chest discomfort. CLINICAL DATA: This is the patient's subsequent encounter. Patient reports that signs and symptoms h ave been present for 2 days and indicates a pain score of 4/10. MEDICAL/SURGICAL HISTORY: None. Craniotomy. COMPARISON: [facility] [place], CHEST SINGLE AP, 10/29/2014. . FINDINGS: PA and lateral views of the chest demonstrate a normal-sized cardiac silhouette. There is no effusion , consolidation, or pneumothorax. The bones and soft tissues demonstrate no acute abnormality. CONCLUSION: No acute cardiopulmonary abnormality is identified. Electronically signed by: Anup Mitchell MD 03/26/2018 9:20 PM EST
[2018-03-26 22:14] LABS: Bilirubin,Urine Negative (Negative); Clarity,Urine Clear (Clear); Color,Urine Yellow (Yellw/Straw); Glucose,Urine (UA) Negative (Negative); Leukocyte Esterase,Urine Negative (Negative); Nitrite,Urine Negative (Negative); Urobilinogen,Urine 0.2 mg/dL (Less than 2)
[2018-03-26 22:20] LABS: RBC,Urine 0-3 /hpf (0-3); Squamous Epithelial Cell,Urine 0-5 /hpf (0-5); WBC,Urine 0-5 /hpf (0-5)
--- NOTE | 2018-03-26 22:33 | CT ---
EXAM DATE: 03/26/2018 10:26 PM EST AGE/SEX: 38 years / Male INDICATIONS: Dizziness and palpitations for five days. CLINICAL DATA: This is the patient's initial encounter. Patient reports that signs and symptoms have been present for 1 day and indicates a pain score of 5/10. MEDICAL/SURGICAL HISTORY: . Brain tumor. Chemotherapy. Hypothyroidism. Mitral valve prolapse. Radia tion therapy. Traumatic brain injury. Short term memory loss. . Brain surgery. RADIATION DOSE: 52.29 CTDI (mGy) COMPARISON: [facility], MR BRAIN W AND W/O CONTRAST, 10/21/2017. [facility], CT BRAIN W/O CONTRAST, 11/10/2016. . TECHNIQUE: CT of the head without contrast. Using automated exposure control and adjustment of the mA and/or kV according to patient size, radiation dose was kept as low as reasonably achievable to ob tain optimal diagnostic quality images. DICOM format image data is available electronically for revi ew and comparison. FINDINGS: Cerebrum: The ventricles are normal. There is a stable low-density in the right frontal lobe likely along the tract of a prior ventricular catheter or [employer] shunt. No midline shift, mass lesion, hemorrhag e or acute infarction. No extraaxial fluid collections are seen. Posterior Fossa: The cerebellum and brainstem demonstrate no acute abnormality. There is a stable ca lcification within the cerebellum and brainstem. The 4th ventricle is midline. The cerebellopontine angle is within normal limits. Extracranial: There is a metal implant in the region of the right eyelid. This causes significant be am hardening artifact and partial obscuration of the surrounding structures at this level. Skull: There has been prior occipital craniotomy and there is a tessie hole in the right frontal bone related to prior shunt. CONCLUSION: 1. Stable noncontrast head CT. No acute intracranial abnormality is identified. 2. There is stable calcification in the posterior fossa, as above, in this patient post occipital cr aniotomy. . Electronically signed by: Anup Mitchell MD 03/26/2018 10:31 PM EST
--- NOTE | 2018-03-26 22:37 | CT ---
EXAM DATE: 03/26/2018 10:28 PM EST AGE/SEX: 38 years / Male INDICATIONS: Dizziness and palpitations for five days. CLINICAL DATA: This is the patient's initial encounter. Patient reports that signs and symptoms have been present for 1 day and indicates a pain score of 5/10. MEDICAL/SURGICAL HISTORY: . Brain tumor. Chemotherapy. Hypothyroidism. Mitral valve prolapse. Radia tion therapy. Traumatic brain injury. Short term memory loss. . Brain surgery. RADIATION DOSE: 43.11 CTDI (mGy) COMPARISON: No prior exams available for comparison. TECHNIQUE: Volumetric scanning was performed using a multirow detector CT scanner during bolus infus ion of 75 ml Omnipaque 350 (iohexol) nonionic water-soluble contrast as a single exam dose. The da ta was postprocessed with a variety of visualization algorithms including full-volume maximum intensi ty projection, multiplanar sliding thin-slab reformation, curved-planar reformation, and surface-rend ering techniques. Using automated exposure control and adjustment of the mA and/or kV according to p atient size, radiation dose was kept as low as reasonably achievable to obtain optimal diagnostic radha lity images. DICOM format image data is available electronically for review and comparison. Percent stenosis is calculated using the diameter of the stenotic region over the diameter of the nor mal distal internal carotid artery. FINDINGS: Aortic Arch: The left vertebral artery originates directly from the arch. The arch demonstrates no a bnormality. Osteopenia of the great vessels are within normal limits. Visualized subclavian arteries are within normal limits. Right Carotid: The common carotid artery is within normal limits. There is no atherosclerotic diseas e. Carotid bulb and internal and external carotid artery are within normal limits. No luminal narrowi ng or dissection is present. Left Carotid: The common carotid artery is within normal limits. There is no atherosclerotic disease . Carotid bulb and internal and external carotid artery are within normal limits. No luminal narrowin g or dissection is present. Vertebrals: The vertebral arteries have a symmetric diameter. No stenotic lesions are seen. CONCLUSION: Normal evaluation of the neck arterial vasculature. Electronically signed by: Anup Mitchell MD 03/26/2018 10:36 PM EST
--- NOTE | 2018-03-26 22:47 | ED ---
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 He does have some residual right-sided facial droop after his surgery 15 years ago but states that he has started to have episodes of numbness to the right side of his face followed by a dizzy unsteadiness where he has difficulty walking. He believes he feels like the room is spinning but he is not sure. He does feel like he has tunnel vision during those episodes but reports his vision and visual mcgill are otherwise intact when it is not occurring. These episodes often begin while he is resting comfortably. He denies chest pain, dyspnea, abdominal pain, nausea, vomiting. He does admit to some right-sided neck pain over the last few days as well. He denies any recent roller coaster rides, chiropractor manipulation, MVC but states that he has been trying to manipulate his own neck partially with stretches. MD complaint: Reports dizziness and difficulty walking Onset (ago): hour(s) Timing: sudden onset Description: Reports "room spinning" and off-balance History of similar episodes: Yes History of trauma: No Severity: moderate Relieving factors: nothing Exacerbating factors: nothing Related Data Home Medications Medication Instructions Recorded Confirmed acetaminophen-codeine 1 tab PO Q4-6H PRN 03/26/18 03/26/18 [Tylenol-Codeine #3] amlodipine [Norvasc] 10 mg PO DAILY 03/26/18 03/26/18 inulin-sorbitol [Fiber Supplement 03/26/18 (inulin)] levothyroxine 150 mcg PO DAILY 03/26/18 03/26/18 lisinopril 20 mg PO DAILY 03/26/18 03/26/18 mirtazapine [Remeron] 15 mg PO DAILY 03/26/18 03/26/18 montelukast [Singulair] 10 mg PO QPM 03/26/18 03/26/18 propranolol 10 mg PO QDRHS 03/26/18 03/26/18 testosterone cypionate 100 mg IM QWEEK 03/26/18 03/26/18 trazodone 50 mg PO DAILY 03/26/18 03/26/18 Allergies Allergy/AdvReac Type Severity Reaction Status Date / Time diatrizoate meglumine Allergy Severe RASH Verified 03/26/18 20:13 gadobenic acid Allergy Severe RASH Verified 03/26/18 20:13 gadodiamide Allergy Severe RASH Verified 03/26/18 20:13 gadoteridol Allergy Severe RASH Verified 03/26/18 20:13 iodixanol Allergy Severe RASH Verified 03/26/18 20:13 iohexol Allergy Severe RASH Verified 03/26/18 20:13 Pertussis Vaccines Allergy Severe COMA Verified 03/26/18 20:13 Sulfa (Sulfonamide Allergy Severe Rash Verified 03/26/18 20:13 Antibiotics) Review of Systems ROS: all other systems reviewed are negative [facility] Medical History Medical History Hearing difficulty (Acute) History of brain tumor (Acute) History of chemotherapy (Acute) History of hypothyroidism (Acute) History of mitral valve prolapse (Acute) History of radiation therapy (Acute) History of traumatic brain injury (Acute) Memory loss, short term (Acute) Surgical History Surgical History History of brain surgery (Acute) Social History Social History Substance History: No History of Abuse Smoking Status: Current every day smoker Tobacco Type: Cigarettes How Often Do You Have a Drink Containing Alcohol: Never Recent Travel in [facility] within the Last 8 Weeks: No Recent Out of Country Travel within the Last 8 Weeks: No Immunization History Tetanus Immunization: <5 Years Exam Narrative Exam Narrative: GENERAL: Well-appearing male in no acute distress SKIN: Focused skin assessment warm/dry. No rashes. HEAD: Atraumatic. Normocephalic. EYES: Pupils equal and round. No scleral icterus. No injection or drainage. ENT: No nasal bleeding or discharge. Mucous membranes pink and moist. NECK: Trachea midline. No JVD. CARDIOVASCULAR: Regular rate and rhythm. No murmur appreciated. Intact and equal peripheral pulses. RESPIRATORY: No accessory muscle use. Clear to auscultation. Breath sounds equal bilaterally. GASTROINTESTINAL: Abdomen soft, non-tender, nondistended. Hepatic and splenic margins not palpable. MUSCULOSKELETAL: No obvious deformities. No clubbing. No cyanosis. No edema. NEUROLOGICAL: Awake and alert. Chronic, unchanged facial droop. Extremities motor within normal limits. Normal sensation. No dysmetria nor ataxia (normal heel-proctor and finger-nose). Normal speech. PSYCHIATRIC: Appropriate mood and affect; insight and judgment normal. Course Initial Documented Vital Signs Temperature 98.2 F 03/26/18 19:47 Pulse Rate 77 03/26/18 19:47 Respiratory Rate 18 03/26/18 19:47 Blood Pressure 138/89 03/26/18 19:47 Pulse Oximetry 98 03/26/18 19:47 Last Documented Vital Signs Temperature 98.2 F 03/26/18 19:47 Pulse Rate 67 03/26/18 22:55 Respiratory Rate 16 03/26/18 22:55 Blood Pressure 124/76 03/26/18 22:55 Pulse Oximetry 99 03/26/18 22:55 Medical Decision Making MDM Narrative Medical decision making narrative: Patient is a 38-year-old male who presents with complaint of intermittent numbness with dizziness. He is neurologically intact on arrival except for his chronic facial droop which is unchanged. EKG shows T wave inversion in lead III but no other ST or T wave changes. Chest x- ray is unremarkable and CT head does not reveal an acute process. CTA is also unremarkable. Labs reveal some slight acute renal insufficiency but no other changes. He will be admitted for further evaluation and management of this dizziness with numbness. Medical Screen Exam Complete: Yes Emergency Medical Condition: Yes Differential Diagnosis Differential Diagnosis: Differential diagnosis includes but is not limited to carotid dissection, focal seizure, recurrent cerebellar tumor, anemia, electrolyte abnormality, stroke. Medical Records Medical records reviewed: Yes I reviewed the patient's medical records. Lab Data Lab results reviewed: Yes I reviewed the patient's lab results. Result diagrams: 03/26/18 20:57 03/26/18 20:57 Lab Results 03/26/18 03/26/18 03/26/18 Range/Units 20:57 20:57 22:00 CBC w Diff Auto diff final WBC 8.0 (4.0-11.0) th/mm3 RBC 5.30 (4.50-5.90) mil/mm3 Hgb 16.1 (13.0-17.0) gm/dL Hct 47.5 (39.0-51.0) % MCV 89.7 (80.0-100.0) fL MCH 30.4 (27.0-34.0) pg MCHC 33.9 (32.0-36.0) % RDW 12.8 (11.6-17.2) % Plt Count 331 (150-450) th/mm3 MPV 7.0 (7.0-11.0) fL Neut % (Auto) 55.8 (16.0-70.0) % Lymph % (Auto) 33.2 (9.0-44.0) % [place] % (Auto) 7.6 (0.0-8.0) % Eos % (Auto) 2.2 (0.0-4.0) % Baso % (Auto) 1.2 (0.0-2.0) % Neut # (Auto) 4.4 (1.8-7.7) th/mm3 Lymph # (Auto) 2.7 (1.0-4.8) th/mm3 [place] # (Auto) 0.6 (0.0-0.9) th/mm3 Eos # (Auto) 0.2 (0.0-0.4) th/mm3 Baso # (Auto) 0.1 (0.0-0.2) th/mm3 WBC Differential . Differential Comment . Sodium 138 (136-145) meq/L Potassium 4.4 (3.5-5.1) meq/L Chloride 104 (98-107) meq/L Carbon Dioxide 28.2 (21.0-32.0) meq/L Anion Gap 6 (5-15) meq/L BUN 19 H (7-18) mg/dL Creatinine 1.50 H (0.60-1.30) mg/dL Estimated GFR 53 L (>89) mL/min Random Glucose 99 (74-106) mg/dL Calcium 9.2 (8.5-10.1) mg/dL Troponin I Less than 0.02 L (0.02-0.05) ng/mL Urine Color Yellow (Yellw/Straw) Urine Clarity Clear (Clear) Urine pH 6.0 (5.0-8.5) Ur Specific [place] 1.020 (1.002-1.035) Urine Protein Negative (Neg-Trace) mg/dL Urine Glucose (UA) Negative (Negative) mg/dL Urine Ketones Negative (Negative) mg/dL Urine Occult Blood Negative (Negative) Urine Nitrate Negative (Negative) Urine Bilirubin Negative (Negative) Urine Urobilinogen 0.2 (Less than 2) mg/dL Ur Leukocyte Esterase Negative (Negative) Urine RBC 0-3 (0-3) /hpf Urine WBC 0-5 (0-5) /hpf Ur Squamous Epith Cells 0-5 (0-5) /hpf Micro UA Comment Culture not ind Ur Microscopic Review Microscopic reviewed Urine Culture Comments Culture not ind Imaging Data Attestation: I personally reviewed and interpreted this imaging study as follows : Radiologist's impression: Chest X-Ray 03/26/18 20:10 CONCLUSION: No acute cardiopulmonary abnormality is identified. Head CT 03/26/18 20:10 CONCLUSION: 1. Stable noncontrast head CT. No acute intracranial abnormality is identified. 2. There is stable calcification in the posterior fossa, as above, in this patient post occipital craniotomy. . Neck CTA 03/26/18 20:10 CONCLUSION: Normal evaluation of the neck arterial vasculature. ECG Data EKG Prior to Arrival: No Attestation: I personally reviewed and interpreted this ECG as follows: (Sinus rhythm at a rate of 76 bpm. There are T wave inversions in lead III but no other ST or T wave changes.) Discharge Plan Discharge Disposition Patient Disposition: ED Admit(ED Internal Use Only) Discharge Condition Condition: Stable Discharge Order Discharge Orders: ED Use Only Admit Order (Routine); Ordered 03/26/18 Ordered By: Thea Tapia Discharge Details Diagnosis: Dizziness, Numbness, History of brain tumor Physicians Team ED Provider: Thea Tapia Primary Care Provider: UNKNOWN, Rxs /Orders / Referrals /Forms Prescriptions: No Action trazodone 50 mg Tablet 50 mg PO DAILY RF: 0 lisinopril 20 mg Tablet 20 mg PO DAILY RF: 0 acetaminophen-codeine [Tylenol-Codeine #3] 300-30 mg Tablet 1 tab PO Q4-6H PRN (Reason: Pain) RF: 0 propranolol 10 mg Tablet 10 mg PO QDRHS RF: 0 amlodipine [Norvasc] 10 mg Tablet 10 mg PO DAILY RF: 0 montelukast [Singulair] 10 mg Tablet 10 mg PO QPM RF: 0 mirtazapine [Remeron] 15 mg Tablet 15 mg PO DAILY RF: 0 inulin-sorbitol [Fiber Supplement (inulin)] 2 gram Tablet,Chewable RF: 0 levothyroxine 150 mcg Capsule 150 mcg PO DAILY RF: 0 testosterone cypionate 100 mg/mL Oil 100 mg IM QWEEK RF: 0 Status ED Status: Pending Admission
[2018-03-26] MEDS ORDERED: Sod Chloride 0.9% Inj 1,000 ML IV.CONT SCH (23:30)
[2018-03-27 00:41] LABS: Amphetamine Screen,Urine Neg (Neg); Barbiturate Screen,Urine Neg (Neg); Cannabinoid Screen,Urine Neg (Neg); Cocaine Screen,Urine Neg (Neg)
[2018-03-27 00:43] LABS: Opiate Screen,Urine Pos (Neg)
[2018-03-27 01:19] VITALS: RESP 18
[2018-03-27] MEDS ORDERED: Gadobutrol PF 2 MMOL/2 ML Vial (for RAD) IV.SIG ONE (12:25)
--- NOTE | 2018-03-27 12:48 | MR ---
EXAM DATE: 03/27/2018 12:31 PM EST AGE/SEX: 38 years / Male INDICATIONS: Dizziness. Left sided numbness. CLINICAL DATA: This is the patient's initial encounter. Patient reports that signs and symptoms have been present for 2 days and indicates a pain score of 0/10. MEDICAL/SURGICAL HISTORY: . Brain tumor. Craniotomy. COMPARISON: No prior exams available for comparison. TECHNIQUE: Multiplanar, multisequence examination of the brain was performed without and with 8 ml Ga davist (gadobutrol) contrast as a single exam dose. 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 This is stable in the interval. Ventricular size is appropriate. There is n o restricted diffusion evident. There are no extra-axial fluid collections appreciated. On the postco ntrast images there is no abnormal contrast enhancement. White Matter: No significant signal abnorma lities are seen in the white matter. Posterior Fossa: The cerebellum and brainstem are intact. The 4th ventricle is midline. The cerebel lopontine angle is unremarkable. The cerebellar tonsils are normal in position. The orbits and paranasal sinuses visualized are unremarkable. CONCLUSION: 1. Stable MRI of the brain the small area of porencephaly or gliosis if high in the right frontal co nvexity. 2. There is no restricted diffusion to suggest acute ischemic event. Electronically signed by: Giovanni Crowder MD 03/27/2018 12:47 PM EST
--- NOTE | 2018-03-27 12:52 | MR ---
EXAM DATE: 03/27/2018 12:36 PM EST AGE/SEX: 38 years / Male INDICATIONS: Dizziness. Right sided numbness. CLINICAL DATA: This is the patient's initial encounter. Patient reports that signs and symptoms have been present for 2 days and indicates a pain score of 0/10. MEDICAL/SURGICAL HISTORY: Hypothyroidism. Traumatic brain injury. Brain tumor. Craniotomy. COMPARISON: [facility], MR HEAD W & W/O CONTRAST, 03/27/2018. . TECHNIQUE: 3D [id number] MRA was performed. Source images, multiplanar STS MIP, and 3D volum e MIP reconstructions were reviewed. FINDINGS: There is excellent visualization of the major intracranial arteries out to the second-order branch ve ssels. There is no evidence for aneurysm, vessel truncation or stenosis, and no evidence for vascula r malformation. CONCLUSION: 1. Negative MRA of the brain Electronically signed by: Giovanni Crowder MD 03/27/2018 12:50 PM EST
--- NOTE | 2018-03-27 13:26 | P.HPIM ---
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 The episodes are intermittent, with no alleviating or exacerbating factors, and last about 15-20 minutes. Sometimes occur at rest sometimes with activity. The numbness starts in the the right side of his tongue to the right side of his nose across his forehead to the right side of his face, followed by profound dizziness. No nausea vomiting no other associated symptoms. He denies injury changes medications or other associated factors. Evaluation in the emergency room included CT of the head, CT angiogram of the neck was unremarkable, and only mild elevation of BUN and creatinine. PMhx: Medulloblastoma, hypothyroidism, hypogonadism, TBI, hypertension, vertigo , hearing impaired, PSXhx: Craniotomy SOChx: Smokes 1 pack/day, denies any alcohol or drugs of abuse FAMhx: Brain tumor Review of Systems Review of Systems: all other systems reviewed are negative COUNTS INCLUDE 234 BEDS AT THE [facility] Medical History Medical History Hearing difficulty (Acute) History of brain tumor (Acute) History of chemotherapy (Acute) History of hypothyroidism (Acute) History of mitral valve prolapse (Acute) History of radiation therapy (Acute) History of traumatic brain injury (Acute) Memory loss, short term (Acute) Surgical History Surgical History History of brain surgery (Acute) Social History Social History Substance History: No History of Abuse Second Hand Smoke Exposure: No Smoking Status: Current some day smoker Tobacco Type: Cigarettes How Often Do You Have a Drink Containing Alcohol: Never Recent Travel in [facility] within the Last 8 Weeks: No Recent Out of Country Travel within the Last 8 Weeks: No Immunization History Tetanus Immunization: <5 Years Medications and Allergies Allergies Allergy/AdvReac Type Severity Reaction Status Date / Time diatrizoate meglumine Allergy Severe RASH Verified 03/26/18 20:13 gadobenic acid Allergy Severe RASH Verified 03/26/18 20:13 gadodiamide Allergy Severe RASH Verified 03/26/18 20:13 gadoteridol Allergy Severe RASH Verified 03/26/18 20:13 iodixanol Allergy Severe RASH Verified 03/26/18 20:13 iohexol Allergy Severe RASH Verified 03/26/18 20:13 Pertussis Vaccines Allergy Severe COMA Verified 03/26/18 20:13 Sulfa (Sulfonamide Allergy Severe Rash Verified 03/26/18 20:13 Antibiotics) Home Medications Medication Instructions Recorded Confirmed Type acetaminophen-codeine 1 tab PO Q4-6H PRN 03/26/18 03/26/18 History [Tylenol-Codeine #3] amlodipine [Norvasc] 10 mg PO DAILY 03/26/18 03/26/18 History levothyroxine 150 mcg PO DAILY 03/26/18 03/26/18 History lisinopril 20 mg PO DAILY 03/26/18 03/26/18 History mirtazapine [Remeron] 15 mg PO DAILY 03/26/18 03/26/18 History montelukast [Singulair] 10 mg PO QPM 03/26/18 03/26/18 History propranolol 10 mg PO QDRHS 03/26/18 03/26/18 History testosterone cypionate 100 mg IM QWEEK 03/26/18 03/26/18 History trazodone 50 mg PO HS 03/26/18 03/27/18 History psyllium 1 tbsp PO DAILY 03/27/18 03/27/18 History Active Medications: Active Medications Sodium Chloride (Ns Flush) 2 ml IV.FLUSH PRN PRN PRN Reason: FLUSH AFTER USING IV ACCESS Physical Exam Vital signs: Last Vital Signs Temp 96.4 F L 03/27/18 11:51 Pulse 50 L 03/27/18 11:51 Resp 18 03/27/18 11:51 BP 127/61 03/27/18 11:51 Pulse Ox 98 03/27/18 11:51 Intake & Output 03/25/18 03/26/18 03/27/18 03/28/18 06:59 06:59 06:59 06:59 Intake Total 1500 / 1500 475 / 475 Output Total 1100 / 1100 Balance 400 / 400 475 / 475 Weight 86.6 kg Narrative: GEN well-developed well-nourished 38-year-old white gentleman awake alert oriented to person time and place, pleasant in no acute distress HEENT normocephalic atraumatic, right facial droop mild edema compared to left, pupils unequal reactive, sclerae anicteric, extraocular motion intact, mucosa is moist. posterior pharynx clear no gum lip dental lesions noted NECK supple no JVD trachea midline thyroid smooth not enlarged ANT CHEST WALL without mass or tenderness to palpation HEART S1-S2 regular without murmur gallops or clicks LUNGS clear to auscultation without wheeze rales or rhonchi , full symmetric expansion no dullness to percussion BACK exam is no CVA tenderness or mass ABDOMEN soft nondistended positive bowel sounds no guarding rebound rigidity LYMPH NODES no cervical, axillary or inguinal adenopathy noted EXTREMITIES no clubbing cyanosis or significant edema, peripheral pulses palpable +2 NEUROLOGIC cranial nerves with right facial droop noted, numbness right face, strength is 5 out of 5 symmetrical no clonus or rigidity, no ataxia noted SKIN warm and dry with good turgor, no other rash or sores noted Results Labs CBC & Chem 7: 03/26/18 20:57 03/26/18 20:57 Imaging Impressions Chest X-Ray 03/26/18 20:10 CONCLUSION: No acute cardiopulmonary abnormality is identified. Head CT 03/26/18 20:10 CONCLUSION: 1. Stable noncontrast head CT. No acute intracranial abnormality is identified. 2. There is stable calcification in the posterior fossa, as above, in this patient post occipital craniotomy. . Neck CTA 03/26/18 20:10 CONCLUSION: Normal evaluation of the neck arterial vasculature. Head MRA 03/27/18 00:00 CONCLUSION: 1. Negative MRA of the brain Head MRI 03/27/18 07:11 CONCLUSION: 1. Stable MRI of the brain the small area of porencephaly or gliosis if high in the right frontal convexity. 2. There is no restricted diffusion to suggest acute ischemic event. Caprini VTE Risk Assessment Caprini VTE Risk Assessment: No/Low Risk (score <= 1) Caprini Risk Assessment Model: Point Value = 1 Point Value = 2 Point Value = 3 Point Value = 5 Age 41-60 Minor surgery BMI > 25 kg/m2 Swollen legs Varicose veins or History of unexplained or recurrent spontaneous Oral contraceptives or hormone replacement Sepsis (< 1 month) Serious lung disease, including pneumonia (< 1 month) Abnormal pulmonary function Acute myocardial infarction Congestive heart failure (< 1 month) History of inflammatory bowel disease Medical patient at bed rest Age 61-74 Arthroscopic surgery Major open surgery (> 45 min) Laparoscopic surgery (> 45 min) Malignancy Confined to bed (> 72 hours) Immobilizing plaster cast Central venous access Age >= 75 History of VTE Family history of VTE Factor V Leiden Prothrombin [id number] Lupus anticoagulant Anticardiolipin antibodies Elevated serum homocysteine Heparin-induced thrombocytopenia Other congenital or acquired thrombophilia Stroke (< 1 month) Elective arthroplasty Hip, pelvis, or leg fracture Acute spinal cord injury (< 1 month) Prophylaxis Regimen: Total Risk Factor Score Risk Level Prophylaxis Regimen 0-1 Low Early ambulation 2 Moderate Order ONE of the following: *Sequential Compression Device (SCD) *Heparin 5000 units SQ BID 3-4 Higher Order ONE of the following medications: *Heparin 5000 units SQ TID *Enoxaparin/Lovenox 40 mg SQ daily (WT < 150 kg, CrCl > 30 mL/min) *Enoxaparin/Lovenox 30 mg SQ daily (WT < 150 kg, CrCl > 10-29 mL/min) *Enoxaparin/Lovenox 30 mg SQ BID (WT < 150 kg, CrCl > 30 mL/min) AND/OR *Sequential Compression Device (SCD) 5 or more Highest Order ONE of the following medications: *Heparin 5000 units SQ TID (Preferred with Epidurals) *Enoxaparin/Lovenox 40 mg SQ daily (WT < 150 kg, CrCl > 30 mL/min) *Enoxaparin/Lovenox 30 mg SQ daily (WT < 150 kg, CrCl > 10-29 mL/min) *Enoxaparin/Lovenox 30 mg SQ BID (WT < 150 kg, CrCl > 30 mL/min) AND *Sequential Compression Device (SCD) Assessment and Plan Plan INTERMITTENT VERTIGO and FACIAL PARAESTHESIA - r/o atypical seizure, tia, bells palsy etiology, admit, mri/mra and neurologic consult HYPOTHYROIDISM - continue synthroid HYPERTENSION - cont home meds stable NANO/dehydration - post ivf, encourage po TOBACCO ABUSE and nicotine addiction/ cessation counseling, nicoderm daily HYPOGONADISM on testosterone 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 H&P: Quality VTE Deep Vein Thrombosis/Pulmonary Embolism Present on Admission: No
--- NOTE | 2018-03-27 13:49 | MB ---
cc: Carol Montero MD DATE: 03/27/2018 REASON FOR CONSULTATION: History of brain tumor, possible seizure, dizziness. HISTORY OF PRESENT ILLNESS: This is a 38-year-old man with a history of medulloblastoma back at age 21; was surgically excised at [facility]; received chemotherapy and radiation. Has been followed routinely with [facility]. Has an appointment, I believe, at [facility] in 2 weeks, but started experiencing over the last week or more where the right side of his tongue becomes numb, goes into the face and into the neck region without loss of awareness or consciousness. The last event that happened yesterday lasted for about 30 minutes. He states that he is not doing anything significant when it happens. He has difficulty describing if he is vertiginous or just lightheaded. Maybe there is some tunnel vision. He has very unsteady unable to walk at that time, but he is awake, he states. There is no tongue biting or incontinence. He has a residual right facial droop. He has as difficulty closing the right; he has a weight on the lid to help close it. He has residual numbness over the right tongue as it is. Some neck pain, some muscle tension as well described; at times the muscle tenses up he states. No symptoms in the arm. PAST MEDICAL HISTORY: As stated, medulloblastoma excised chemo, radiation, hypothyroidism, mitral valve prolapse, hypogonadism. ALLERGIES: PLEASE REFER TO THE MAR. SOCIAL HISTORY: Lives with family. PHYSICAL EXAMINATION: VITAL SIGNS: Temperature is 96.4, pulse 50, respiratory rate 18, blood pressure 127/61, saturating at 98% on room air. NECK: Supple. HEART: Regular. NEUROLOGIC: He is awake, alert. His speech is mildly dysarthric, which is not new. Right pupil slightly larger than the left, but reactive. Extraocular muscles: Right, he cannot fully abduct the right eye. He wears prisms due to chronic diplopia in his glasses. He has right facial asymmetry. Facial sensation slightly decreased on the right compared to the left. He has decreased hearing as well. Motor: There is no drift or leg lag. Cerebellar testing is normal. DTRs are 1+. Toes withdraws. Gait: He has been ambulating in the room without any issues. LABORATORY DATA: Urine tox screen: UDS positive for opiates. Urinalysis otherwise unremarkable. Chemistries: Creatinine 1.5, GFR 53. CBC is normal. IMAGING: As far as reports: 1. He had a CTA of the carotids that showed no stenosis or dissection or any other findings of the carotid. 2. MRA: [place] was negative. 3. Brain MRI is stable with a small area of porencephaly or gliosis in the right convexity. There is nothing new seen. There are chronic changes seen over the posterior region; ventricular size is appropriate. No diffusion restriction post-contrast, no abnormal enhancement. 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 IMPRESSION: 1. Paresthesias right face with some inability to ambulate and dizziness, some cervical spine spasming as well noted by the patient. 2. Possible seizure. Recommend EEG, which was done. We will get that official report. I would also get MRI of his C-spine. At this point in time, if his workup proves to be all unremarkable, I would still recommend no driving until he follows up at [facility] in 2 weeks and he should take all his images to the department at [facility] when he goes for his followup. We will continue to monitor him here on telemetry. MD TEE Craft/pedro , 01:10 PM , 01:25 PM
[2018-03-27] MEDS ORDERED: Propranolol 10 MG Tablet PO SCH (14:30)
[2018-03-27] MEDS ORDERED: Mirtazapine 15 MG Tablet PO SCH ×2 (15:00→21:00)
[2018-03-27] MEDS: Acetaminophen/Codeine 300/30 MG Tablet PO PRN ×2 (15:07→20:02)
[2018-03-27] MEDS: amLODIPine 10 MG Tablet PO SCH (15:07)
[2018-03-27] MEDS: Lisinopril 20 MG Tablet PO SCH (15:07)
[2018-03-27] MEDS: levETIRAcetam 500 MG Tablet PO SCH ×2 (15:07→20:02)
[2018-03-27] MEDS: Levothyroxine 150 MCG Tablet PO SCH (15:08)
[2018-03-27] MEDS ORDERED: Montelukast 10 MG Tablet PO SCH (18:00)
--- NOTE | 2018-03-27 19:11 | ECG ---
Date Performed: 03/26/2018 Time Performed: 20:23:05 PTAGE: 38 years EKG: Sinus rhythm NORMAL ECG PREVIOUS TRACING : 10/29/2014 15.46 Since the previous tracing, no significant change noted DOCTOR: Brian Tony Interpretating Date/Time 03/27/2018 19:09:44
[2018-03-27] MEDS: Propranolol 10 MG Tablet PO SCH (20:06)
[2018-03-27] MEDS ORDERED: traZODone 50 MG Tablet PO SCH (21:00)
[2018-03-28 06:17] LABS: Potassium 4.5 meq/L (3.5-5.1)
[2018-03-28 06:24] LABS: Calcium 8.6 mg/dL (8.5-10.1); Carbon Dioxide 25.6 meq/L (21.0-32.0)
[2018-03-28] MEDS: Levothyroxine 150 MCG Tablet PO SCH (06:36)
--- NOTE | 2018-03-28 08:32 | MG ---
cc: Rodolfo Melendez MD SUBJECTIVE: A 38-year-old man dizziness, numbness on his face. Cerebellar tumor occipital craniotomy. A 9-10 Hz 60-70 microvolt symmetric posterior rhythm is seen. The recording overall is synchronous and symmetric. No hemisphere asymmetry is noted. No occipital lobe abnormalities are noted. Hyperventilation was performed without significant change in the background. Photic stimulation was performed without any posterior driving. IMPRESSION: A normal awake electroencephalogram. No evidence for a focal or diffuse abnormality. MD COLLIN HaqueM/megan , 08:04 AM , 08:08 AM
[2018-03-28 08:59] VITALS: TEMP 97.4
[2018-03-28] MEDS ORDERED: Psyllium Fiber SF/GF 6 GM Packet PO SCH (09:00)
[2018-03-28] MEDS: levETIRAcetam 500 MG Tablet PO SCH (09:31)
[2018-03-28] MEDS: Propranolol 10 MG Tablet PO SCH (09:36)
[2018-03-28] MEDS: Lisinopril 20 MG Tablet PO SCH (09:36)
[2018-03-28] MEDS: amLODIPine 10 MG Tablet PO SCH (09:36)
[2018-03-28] MEDS: Acetaminophen/Codeine 300/30 MG Tablet PO PRN ×2 (09:42→16:33)
[2018-03-28] MEDS ORDERED: Sod Chloride 0.9% Inj 1,000 ML IV.CONT SCH (10:00)
[2018-03-28 10:09] LABS: Chol/HDL Ratio 4.12 Ratio; HDL Cholesterol 38.1 mg/dL (40.0-60.0)
--- NOTE | 2018-03-28 10:09 | P.PNIM ---
Subjective Interval history: The patient was having an echocardiogram done. He said that his symptoms have been improved since being in the hospital. He thinks his symptoms may be related to his blood pressure medications. He is hoping to go home later today. Discussed with nursing. Physical Exam Vital signs: Vital Signs 03/27/18 11:51 03/27/18 13:33 03/27/18 15:28 Temperature 96.4 F L 97.4 F L Pulse Rate 50 L 68 54 L Respiratory Rate 18 18 Blood Pressure 127/61 141/82 H Pulse Oximetry 98 98 03/27/18 16:00 03/27/18 20:00 03/28/18 00:00 Temperature 98.3 F 95.5 F L Pulse Rate 53 L 58 L 46 L Respiratory Rate 18 18 Blood Pressure 121/59 L 119/64 Pulse Oximetry 97 97 03/28/18 04:00 03/28/18 08:58 Temperature 98.7 F 97.4 F L Pulse Rate 41 L 56 L Respiratory Rate 18 18 Blood Pressure 114/54 L 102/53 L Pulse Oximetry 96 98 Intake & Output 03/27/18 03/28/18 03/28/18 18:59 06:59 18:59 Intake Total 475 / 475 0 / 0 Output Total 350 / 350 Balance 475 / 475 -350 / -350 Weight 87 kg Intake: IV 475 / 475 NS Inj 1,000 ML @ 75 mls/hr IV. 475 / 475 CONT .[id number] [facility] Rx#: [id number] Oral 0 / 0 Output: Urine 350 / 350 Other: # Voids 5 Date of Last Bowel Movement 03/26/18 # Bowel Movements 1 Narrative: GENERAL: Well-appearing male in no acute distress. SKIN: Focused skin assessment warm/dry. No rashes. HEAD: Atraumatic. Normocephalic. EYES: Pupils equal and round. No scleral icterus. No injection or drainage. ENT: No nasal bleeding or discharge. Mucous membranes pink and moist. NECK: Trachea midline. No JVD. CARDIOVASCULAR: Bradycardic. No murmur appreciated. RESPIRATORY: No accessory muscle use. Clear to auscultation. Breath sounds equal bilaterally. GASTROINTESTINAL: Abdomen soft, non-tender, nondistended. Hepatic and splenic margins not palpable. MUSCULOSKELETAL: No obvious deformities. No clubbing. No cyanosis. No edema. NEUROLOGICAL: Awake and alert. Chronic, unchanged facial droop. Extremities motor within normal limits. Normal sensation. No dysmetria nor ataxia (normal heel-proctor and finger-nose). Normal speech. PSYCHIATRIC: Appropriate mood and affect; insight and judgment normal. Results - Labs CBC & Chem 7: 03/26/18 20:57 03/28/18 05:40 Laboratory Results - last 24 hr 03/28/18 05:40 Sodium 140 Potassium 4.5 Chloride 108 H Carbon Dioxide 25.6 Anion Gap 6 BUN 18 Creatinine 1.30 Estimated GFR 62 L Random Glucose 93 Calcium 8.6 - Imaging Impressions Head MRA 03/27/18 00:00 CONCLUSION: 1. Negative MRA of the brain Head MRI 03/27/18 07:11 CONCLUSION: 1. Stable MRI of the brain the small area of porencephaly or gliosis if high in the right frontal convexity. 2. There is no restricted diffusion to suggest acute ischemic event. Assessment and Plan - Plan INTERMITTENT VERTIGO and FACIAL PARAESTHESIA Neurology consult appreciated. EEG negative. Imaging without acute process. Likely s/t bradycardia and borderline hypotension. -holding blood pressure meds. -PT eval. -MRI c spine. -echo. -follow up with neurology. HYPOTHYROIDISM On Synthroid. -check a TSH. -continue Synthroid. HYPERTENSION BP has been low. -holding home meds s/t hypotension and bradycardia. NANO/dehydration Improved. -IVFs. TOBACCO ABUSE and nicotine addiction -cessation counseling. -Nicoderm daily. HYPOGONADISM -on testosterone. 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 Need neuro clearance, echo, improvement in bradycardia
[2018-03-28] MEDS ORDERED: Gadobutrol PF 7.5 MMOL/7.5 ML Vial (for RAD) IV.SIG ONE (11:49)
--- NOTE | 2018-03-28 12:01 | MR ---
EXAM DATE: 03/28/2018 11:53 AM EST AGE/SEX: 38 years / Male INDICATIONS: Mass. Right sided weakness. CLINICAL DATA: This is the patient's initial encounter. Patient reports that signs and symptoms have been present for 2 days and indicates a pain score of 0/10. MEDICAL/SURGICAL HISTORY: . Brain tumor. Craniotomy. COMPARISON: No prior exams available for comparison. TECHNIQUE: Multiplanar, multisequence MRI examination of the cervical spine was performed without an d with 7.5 ml Gadavist (gadobutrol) contrast as a single exam dose. FINDINGS: Vertebrae: Normal vertebral body height. Homogeneous marrow signal. Alignment: Normal. Cord: Normal configuration and signal. Post Fossa: Postsurgical changes are noted. The patient has undergone a suboccipital craniotomy ecce ntric to the right. There is enlargement of the fourth ventricle. Tonsillar position is well-maintain ed. There are no enhancing intra-axial or extra-axial masses. Post Contrast: No abnormal areas of enhancement are seen. C2-C3: The thecal sac has a normal configuration. There is no evidence of disc herniation or spinal canal stenosis. The neural foramina are patent bilaterally. C3-C4: The thecal sac has a normal configuration. There is no evidence of disc herniation or spinal canal stenosis. The neural foramina are patent bilaterally. C4-C5: The thecal sac has a normal configuration. There is no evidence of disc herniation or spinal canal stenosis. The neural foramina are patent bilaterally. C5-C6: The thecal sac has a normal configuration. There is no evidence of disc herniation or spinal canal stenosis. The neural foramina are patent bilaterally. C6-C7: The thecal sac has a normal configuration. There is no evidence of disc herniation or spinal canal stenosis. The neural foramina are patent bilaterally. C7-T1: No epidural impressions seen. CONCLUSION: 1. Postsurgical changes in the posterior fossa following suboccipital craniotomy. 2. Cerebellar volume loss with enlargement of the fourth ventricle 3. No evidence of enhancing lesion in the visualized portion of the posterior fossa. 4. Normal unenhanced and enhanced evaluation of the cervical spine. 5. No evidence of epidural, intradural or intramedullary enhancing lesions. Electronically signed by: Troy Womack MD 03/28/2018 12:00 PM EST
[2018-03-28 16:31] VITALS: BP 135/78; PULSE 56; O2SAT 99
--- NOTE | 2018-03-28 21:00 | ECHRPT ---
Indication: Hypertensive Heart Disease CONCLUSIONS Normal left ventricular size. Wall thickness is normal. The left ventricular systolic function is normal with an estimated ejection fraction in the range of 55-60%. [id number] mitral valve regurgitation. There is trace tricuspid valve regurgitation. The estimated pulmonary arterial pressure is 32 mmHg. BP: / HR: Rhythm: MEASUREMENTS (Male / Female) Normal Values Technical Quality:Fair 2D ECHO LV Diastolic Diameter PLAX 4.6 cm 4.2 - 5.9 / 3.9 - 5.3 cm LV Systolic Diameter PLAX 3.1 cm IVS Diastolic Thickness 1.0 cm 0.6 - 1.0 / 0.6 - 0.9 cm LVPW Diastolic Thickness 1.0 cm 0.6 - 1.0 / 0.6 - 0.9 cm LV Relative Wall Thickness 0.4 RV Internal Dim ED PLAX 3.4 cm LVOT Diameter 2.1 cm Aortic Root Diameter 2.7 cm LA Systolic Diameter LX 3.1 cm 3.0 - 4.0 / 2.7 - 3.8 cm DOPPLER AV Peak Velocity 151.0 cm/s AV Peak Gradient 9.1 mmHg LVOT Peak Velocity 124.0 cm/s LVOT Peak Gradient 6.2 mmHg AV Area Cont Eq pk 2.8 cm Mitral E Point Velocity 59.2 cm/s Mitral A Point Velocity 92.8 cm/s Mitral E to A Ratio 0.6 LV E' Lateral Velocity 3.3 cm/s Mitral E to LV E' Lateral Ratio 17.9 LV E' Septal Velocity 11.2 cm/s Mitral E to LV E' Septal Ratio 5.3 TR Peak Velocity 235.0 cm/s TR Peak Gradient 22.1 mmHg Right Atrial Pressure 10.0 mmHg Pulmonary Artery Systolic Pressu 32.1 mmHg Right Ventricular Systolic Press 32.1 mmHg PV Peak Velocity 126.0 cm/s PV Peak Gradient 6.4 mmHg FINDINGS LEFT VENTRICLE Normal left ventricular size. Wall thickness is normal. The left ventricular systolic function is normal with an estimated ejection fraction in the range of 55-60%. RIGHT VENTRICLE Normal right ventricular size and systolic function. LEFT ATRIUM The left atrial size is normal. RIGHT ATRIUM The right atrial size is normal. ATRIAL SEPTUM Normal atrial septal thickness without atrial level shunting by limited color doppler interrogation. AORTA The aortic root and proximal ascending aorta are normal in size on limited imaging. MITRAL VALVE [id number] mitral valve regurgitation. AORTIC VALVE Trileaflet aortic valve. No aortic valve stenosis or regurgitation. TRICUSPID VALVE There is trace tricuspid valve regurgitation. The estimated pulmonary arterial pressure is 32 mmHg. PULMONARY VALVE No pulmonary valve regurgitation or stenosis. VESSELS The inferior vena cava was not well visualized. PERICARDIUM No pericardial effusion. Graciela Landaverde MD, FACC (Electronically Signed) Final Date:28 March 2018 20:59
== END 2018-03-28 17:42 | disposition home or self-care (01) ==
LOC: PHEDA 19:45 → PHED 19:45 → PH3 03-27 00:37
PROVIDERS: ADMIT Hospitalist; ATTEND Hospitalist